=== PATIENT | female | born 2000 | race American Indian/Alaskan Native ===

== ENCOUNTER 2022-03-11 06:51 | Emergency (ER) | payer MEDICAID ==
[2022-03-11] MEDS ORDERED: Albuterol/Ipratropium 3.0-0.5 MG/3 ML Neb Soln ONE (07:00)
[2022-03-11] MEDS ORDERED: predniSONE 10 MG Tab PO ONE (07:10)
[2022-03-11] MEDS ORDERED: predniSONE 10 MG Tab ONE (07:27)
[2022-03-11] MEDS: Albuterol/Ipratropium 3.0-0.5 MG/3 ML Neb Soln NEB ONE ×2 (07:31→08:33)
== END 2022-03-11 07:50 | disposition home or self-care (01) ==
LOC: MW.ED 06:51
DX: J45.901 Unspecified asthma with (acute) exacerbation (principal); Z79.899 Other long term (current) drug therapy
CPT/HCPCS: 99285; A9270; 99283; J7620-GY

== ENCOUNTER 2022-03-17 05:45 | Emergency (ER) | payer MEDICAID ==
[2022-03-17] MEDS ORDERED: Albuterol/Ipratropium 3.0-0.5 MG/3 ML Neb Soln NEB ONE (06:27)
[2022-03-17] MEDS ORDERED: predniSONE 10 MG Tab PO ONE (06:27)
[2022-03-17 06:32] LABS: CORONAVIRUS COVID-19 NAA NEGATIVE (NEGATIVE); INFLUENZA A NAA NEGATIVE (NEGATIVE); INFLUENZA B NAA NEGATIVE (NEGATIVE); RESPIRATORY SYNCYTIAL VIR NAA NEGATIVE (NEGATIVE)
[2022-03-17] MEDS ORDERED: Azithromycin 250 MG Tab PO ONE (06:34)
== END 2022-03-17 06:48 | disposition home or self-care (01) ==
LOC: MW.ED 05:45
DX: J45.901 Unspecified asthma with (acute) exacerbation (principal); Z79.899 Other long term (current) drug therapy; Z20.822 Contact with and (suspected) exposure to COVID-19
CPT/HCPCS: 0241U; 94640; 99283; A9270; J7620-GY

== ENCOUNTER 2022-05-18 06:19 | Emergency (ER) | payer MEDICAID | END 2022-05-18 06:44 | LOC: MW.ED 06:19 | DX: Z51.89 Encounter for other specified aftercare (principal) | CPT/HCPCS: 99283 ==